=== PATIENT | male | born 1965 ===

== ENCOUNTER → 2018-03-31 | Outpatient (CLI) | payer OTHER | END | disposition home or self-care (01) | LOC: SONOGRAMA 10:59 | DX: M25.561 Pain in right knee (principal) ==

== ENCOUNTER → 2020-05-30 | Outpatient (CLI) | payer OTHER | END | disposition home or self-care (01) | LOC: MRI 10:17 | DX: M25.461 Effusion, right knee (principal); M94.261 Chondromalacia, right knee; M25.562 Pain in left knee; M25.462 Effusion, left knee | CPT/HCPCS: 73721 ==